=== PATIENT | male | born 1980 | race Caucasian/White ===

== ENCOUNTER 2021-04-15 06:32 | Observation (INO) | payer OTHER ==
[~2021-04-15] VITALS: Ht 177.8 cm; Wt 83.0 kg
[~2021-04-15 06:32] MED LIST: ATIVAN0.5 MG PO; ENDOCET; NO HOME MEDICATIONS; PERCOCET 325 MG1 TA2 PO; RAPAFLO8 MG PO; XANAX1 MG PO
[2021-04-15] MEDS ORDERED: PRINIVIL5 MG (06:49)
[2021-04-15 06:57] LABS: BASO % 0.5 % (0.0-2.0); EOS # 0.6 K/mm3 (0.0-0.7); EOS % 6.9 % (0-4.0); GRAN # 4.1 K/mm3 (1.4-6.5); GRAN % 48.7 % (42.2-75.2); HEMATOCRIT 43.5 % (42.0-52.0); HEMOGLOBIN 14.7 g/dl (13.5-18.0); LYMPH # 3.1 K/mm3 (1.2-3.4); LYMPH % 36.8 % (20.0-51.0); MEAN CELL VOLUME 87 fl (80.0-100.0); MEAN CORPUSCULAR HEMOGLOBIN 30 pg (27.0-31.0); MEAN CORPUSCULAR HGB CONC 34 g/dl (33.0-37.0); MEAN PLATELET VOLUME 9.4 fl (7.4-10.4); MONO # 0.6 K/mm3 (0.1-0.6); MONO % 6.9 % (1.7-9.3); PLATELET COUNT 264 K/mm3 (130-400); RED BLOOD COUNT 4.99 M/mm3 (4.20-5.60); REDCELL DISTRIBUTION WIDTH-CV 11.9 % (11.5-14.5)
[2021-04-15 07:11] LABS: COLLECTION METHOD CLEAN CATCH
[2021-04-15 07:12] LABS: ALBUMIN 4.4 gm/dL (3.5-5.0); BILIRUBIN,TOTAL 0.4 mg/dL (0.2-1.2); C-REACTIVE PROTEIN 0.2 mg/dL (0.00-0.50); CALCIUM 9.7 mg/dL (8.4-10.2); CREATININE, serum 1.14 mg/dL (0.72-1.25); POTASSIUM 3.7 mmol/L (3.5-4.5); TOTAL PROTEIN 7.7 gm/dL (6.2-8.1)
[2021-04-15 07:35] LABS: MUCOUS Present /lpf; PH 5 (5-8); SQUAMOUS EPITHELIAL None Seen /hpf; URINE APPEARANCE Clear; URINE BACTERIA None Seen /hpf; URINE BILIRUBIN Negative (NEGATIVE); URINE BLOOD 2+ (NEGATIVE); URINE COLOR Amber; URINE GLUCOSE Negative (NEGATIVE); URINE KETONE Negative (NEGATIVE); URINE LEUKOCYTE ESTERASE Negative (NEGATIVE); URINE NITRATE Positive (NEGATIVE); URINE PROTEIN(semi-quant) 2+ (NEGATIVE); URINE RBC >50 /hpf; URINE UROBILINOGEN >=4.0 mg/dL (NEGATIVE)
[2021-04-15 13:00] VITALS: BP 129/72; PULSE 62; TEMP 98.1
[2021-04-15 15:22] VITALS: BP 138/81; PULSE 65; TEMP 98.2
[2021-04-15] MEDS ORDERED: NORCO 325 MG-51 TAB PO (18:30)
[2021-04-15] MEDS ORDERED: FLOMAX 0.40.4 MG/CAP PO (18:30)
[2021-04-15 19:30] VITALS: BP 127/78; PULSE 57; TEMP 98.4
[2021-04-15 19:32] VITALS: BP 121/86; PULSE 64; TEMP 99.1
--- NOTE | 2021-04-15 20:43 | NUR ---
ALERT AND OX4. VOIDING, AMBULATING, TAKING IN FLUIDS AND TOLERATING DENIES PAIN. DC INSTURCTION GIVEN. PT V/U OF DC. NEEDS MET .
== END 2021-04-15 21:05 | disposition home or self-care (01) ==
LOC: COL.ER 06:32 → SURG 09:32
PROVIDERS: Family Medicine; ADMIT Urology
DX: N20.1 Calculus of ureter (principal); Z87.891 Personal history of nicotine dependence; Z79.899 Other long term (current) drug therapy
CPT/HCPCS: C1769; C2617; G0378; J0690; J0696; J1100; J1885; J2270; J2405; J2704; J3010; J7030; J7120; Q9967